=== PATIENT | male | born 1955 | race Caucasian/White ===

== ENCOUNTER → 2021-01-04 | Outpatient (CLI) | payer OTHER ==
--- NOTE | 2021-01-04 15:07 | CTL ---
EXAMINATION TYPE: CT Low Dose Lung DATE OF EXAM ORDERED: 01/04/2021 HISTORY: Long-term tobacco use. Lung cancer screening CT DLP: [address] CTDI: 3.7 mGy Automated exposure control for dose reduction was used. SCREENING VISIT: Initial study COMPARISON: None TECHNIQUE: Low dose computed tomography scan was performed through the chest at 1 mm thick sections a nd reconstructed images in the coronal plane at [address] DIAGNOSTIC QUALITY: Satisfactory FINDINGS: LUNG NODULES: None. LUNGS: COPD: Severity: Mild Fibrosis: Severity: Mild Lymph nodes: Mild Bibasilar Other findings: Enlarged main pulmonary artery of 3.5 cm axial image 114. [address] findings consistent with underlying pulmonary hypertension. Adjacent ascending aorta measures up to 3.6 cm in diameter. RIGHT PLEURAL SPACE: Effusion: None Calcification: None Thickening: None Pneumothorax: None LEFT PLEURAL SPACE: Effusion: None Calcification: None Thickening: None Pneumothorax: None HEART: Heart Size: Normal Coronary calcification: Mild To moderate Pericardial effusion: None OTHER FINDINGS: Upper abdomen: None Bony thorax: [id number] multilevel spurring in the mid to lower thoracic spine. Surgical change lower cervical spine noted on localizer. Supraclavicular region: None Other: Some right-sided volume loss with mediastinal shift. IMPRESSION: No suspicious nodules. Mild emphysematous change without acute pulmonary process. CT LUNG RAD AND CT CHEST RECOMMENDATION: Lung-Rad 1 Negative: Continue annual screening with LDCT in 12 months. S Modifier (other clinically significant findings): None
== END | disposition home or self-care (01) ==
LOC: RADCTMAIN 13:15
PROVIDERS: ATTEND Physician Assistant
DX: Z12.2 Encounter for screening for malignant neoplasm of respiratory organs (principal); J43.9 Emphysema, unspecified; F17.210 Nicotine dependence, cigarettes, uncomplicated
CPT/HCPCS: 71271

== ENCOUNTER → 2021-12-10 | Outpatient (CLI) | payer OTHER ==
--- NOTE | 2021-12-10 14:31 | US ---
EXAMINATION TYPE: US carotid duplex BILAT DATE OF EXAM: 12/10/2021 COMPARISON: NONE CLINICAL HISTORY: NAION. Patient lost vision in his right eye yesterday. EXAM MEASUREMENTS: RIGHT: Peak Systolic Velocity (PSV) cm/sec ----- Right CCA: 97.8 ----- Right ICA: 103. ----- Right ECA: 128.0 ICA/CCA ratio: 1.06 RIGHT: End Diastole cm/sec ----- Right CCA: 28.5 ----- Right ICA: 30.1 ----- Right ECA: 20.4 LEFT: Peak Systolic Velocity (PSV) cm/sec ----- Left CCA: 89.6 ----- Left ICA: 143 ----- Left ECA: 183 ICA/CCA ratio: 1.6 LEFT: End Diastole cm/sec ----- Left CCA: 15.1 ----- Left ICA: 49.2 ----- Left ECA: 35.4 VERTEBRALS (direction of flow): Right Vertebral: Antegrade Left Vertebral: Antegrade Rhythm: Normal Left side shows slight velocity increase. Moderate plaque. IMPRESSION: 1. Atheromatous plaquing present bilaterally with moderate narrowing between 50 and 69%. This appears greater on the left. Criteria for Assigning % of Stenosis / Diameter reduction (Estimation based on the indirect measurements of the internal carotid artery velocities (ICA PSV). 1. Normal (no stenosis)=ICA PSV < 125 cm/s: ratio < 2.0: ICA EDV<40 cm/s. 2. Less than 50% stenosis=ICA PSV < 125 cm/s: ratio < 2.0: ICA EDV<40 cm/s. 3. 50 to 69% stenosis=ICA PSV of 125 to 230 cm/s: ration 2.0 ? 4.0: ICA EDV 40-100 cm/s. 4. Greater than 70% stenosis to near occlusion= ICA PSV > 230 cm/s: ratio > 4.0: ICA EDV > 100 cm/s. 5. Near occlusion= ICA PSV velocities may be low or undetectable: variable ratio and ICA EDV. 6. Total occlusion=unable to detect flow.
== END | disposition home or self-care (01) ==
LOC: RADUSWWP 12:29
PROVIDERS: ATTEND Optometrist
DX: I65.23 Occlusion and stenosis of bilateral carotid arteries (principal)
CPT/HCPCS: 93880

== ENCOUNTER → 2021-12-28 | Outpatient (CLI) | payer OTHER ==
--- NOTE | 2021-12-29 09:43 | ECHOF ---
Referral Reason:H34.11 MEASUREMENTS -------- HEIGHT: 180.3 cm WEIGHT: 99.8 kg BP: IVSd: 1.1 cm (0.6 - 1.1) LVIDd: 2.7 cm (3.9 - 5.3) LVPWd: 1.0 cm (0.6 - 1.1) IVSs: 1.2 cm LVIDs: 1.8 cm LVPWs: 1.1 cm LAESV Index (A-L): 16.16 ml/m Ao Diam: 3.5 cm (2.0 - 3.7) AV Cusp: 1.8 cm (1.5 - 2.6) LA Diam: 4.0 cm (2.7 - 3.8) MV E Fred: 0.81 m/s MV DecT: 204 ms MV A Fred: 1.34 m/s MV E/A Ratio: 0.60 AV maxP.17 mmHg AV meanP.06 mmHg RAP: 5.00 mmHg RVSP: 16.89 mmHg FINDINGS -------- This was a technically adequate study. The left ventricular size is normal. Overall left ventricular systolic function is normal with, an EF between 55 - 60 %. Normal LAP Grade 1 Diastolic Dysfunction. The right ventricle is normal in size. The left atrial size is normal. The right atrial size is normal. Aortic valve is trileaflet and is mildly thickened. There is mild aortic valve sclerosis. Peak/me an gradient across the Aortic Valve is 10.17mmHg / 6.06mmHg. The mitral valve is normal. The mitral valve leaflets are mildly thickened. Mild mitral annular c alcification present. There is trace mitral regurgitation. The tricuspid valve appears structurally normal. Trace tricuspid regurgitation present. Right megan tricular systolic pressure is normal at < 35 mmHg. There is no pulmonic regurgitation present. The aortic root size is normal. Normal inferior vena cava with normal inspiratory collapse consistent with estimated right atrial pre ssure of 5 mmHg. There is no pericardial effusion. CONCLUSIONS -------- 1. The left ventricular size is normal. 2. Overall left ventricular systolic function is normal with, an EF between 55 - 60 %. 3. Normal LAP Grade 1 Diastolic Dysfunction. 4. Aortic valve is trileaflet and is mildly thickened. 5. There is mild aortic valve sclerosis. 6. Peak/mean gradient across the Aortic Valve is 10.17mmHg / 6.06mmHg. 7. The mitral valve leaflets are mildly thickened. 8. Mild mitral annular calcification present. 9. There is trace mitral regurgitation. 10. Trace tricuspid regurgitation present. 11. There is no pericardial effusion. TRACK WALKER: Danika Graham RDCS
== END | disposition home or self-care (01) ==
LOC: RADECHMAIN 11:10
PROVIDERS: ATTEND Ophthalmology
DX: I08.3 Combined rheumatic disorders of mitral, aortic and tricuspid valves (principal); H34.11 Central retinal artery occlusion, right eye
CPT/HCPCS: 83021; 85652; 93306

== ENCOUNTER → 2022-02-07 | Outpatient (CLI) | payer OTHER ==
--- NOTE | 2022-02-08 01:46 | MR ---
EXAMINATION TYPE: MR lumbar spine wo con DATE OF EXAM: 02/07/2022 COMPARISON: None HISTORY: Low back pain that radiates down right leg. Multiplanar multiecho imaging of the lumbar spine without contrast. Lumbar vertebrae have normal alignment. There is some mild posterior disc bulging at L4-5 and L1-2 an d L2-3. There is no significant spinal stenosis. The lumbar spinal canal is developmentally adequate. There is no compression fracture. No lumbar paraspinal mass. Disc bulging is also lateral on L4-5 o n the right side with neural foraminal impingement. The sacroiliac joints are intact. No compression fracture. No evidence of focal bone destruction. IMPRESSION: Multiple posterior disc bulges without significant spinal stenosis. There is a lateral disc herniation at L4-5 on the right side with neural foraminal impingement on th e lumbar nerve root and could be clinically significant in this patient with right-sided pain.
== END | disposition home or self-care (01) ==
LOC: RADMRIMAIN 19:19
PROVIDERS: ATTEND Orthopaedic Surgery
DX: M51.16 Intervertebral disc disorders with radiculopathy, lumbar region (principal)
CPT/HCPCS: 72148

== ENCOUNTER → 2022-02-09 | Outpatient (CLI) | payer OTHER ==
--- NOTE | 2022-02-09 22:16 | CTL ---
EXAMINATION TYPE: CT Low Dose Lung DATE OF EXAM ORDERED: 02/09/2022 HISTORY: Tobacco use. Lung cancer screening CT DLP: 95.[address] CTDI: 2.6 mGy Automated exposure control for dose reduction was used. SCREENING VISIT: Follow-up COMPARISON: CT dated 01/04/2021 TECHNIQUE: Low dose computed tomography scan was performed through the chest at 1 mm thick sections a nd reconstructed images in multiple planes at 1 mm and [address] DIAGNOSTIC QUALITY: Satisfactory FINDINGS: LUNG NODULES: Right upper lobe solid 2 mm mm nodule on CT image 106. This nodule is stable. LUNGS: COPD: Severity: Mild Fibrosis: Severity: None Lymph nodes: No pathologically enlarged lymph nodes. Other findings: Mild bronchial thickening. RIGHT PLEURAL SPACE: Effusion: None Calcification: None Thickening: None Pneumothorax: None LEFT PLEURAL SPACE: Effusion: None Calcification: None Thickening: None Pneumothorax: None HEART: Heart Size: Normal Coronary Calcification: Moderate to marked Pericardial Effusion: None OTHER FINDINGS: Upper abdomen: None Bony thorax: No aggressive bone lesion. Supraclavicular region: None Other: Scattered arterial atherosclerotic calcifications. The ascending aorta measures 3.9 cm. The pu lmonary trunk measures 3.4 cm suggestive of pulmonary hypertension. IMPRESSION: Stable 2 mm nodule in the right upper lobe. No other definite lung nodule identified. Inc idental findings as described above. CT LUNG RAD AND CT CHEST RECOMMENDATION: Lung-Rad 2 Benign Appearance or Behavior: Continue annual sc reening with LDCT in 12 months. S Modifier (other clinically significant findings): As above
== END | disposition home or self-care (01) ==
LOC: RADCTMAIN 16:28
DX: Z12.2 Encounter for screening for malignant neoplasm of respiratory organs (principal); R91.8 Other nonspecific abnormal finding of lung field; Z87.891 Personal history of nicotine dependence
CPT/HCPCS: 71271

== ENCOUNTER → 2022-02-11 | Outpatient (CLI) | payer OTHER ==
--- NOTE | 2022-02-11 15:48 | US ---
EXAMINATION TYPE: US carotid duplex BILAT DATE OF EXAM: 02/11/2022 COMPARISON: US December 10, 2021. CLINICAL HISTORY: I65.29, H54.61 UNQUALIFIED VISUAL LOSS, RIGHT EYE. Pt states vision loss in right e ye EXAM MEASUREMENTS: RIGHT: Peak Systolic Velocity (PSV) cm/sec ----- Right CCA: 86.9 ----- Right ICA: 90.8 ----- Right ECA: 93.0 ICA/CCA ratio: 1.0 RIGHT: End Diastole cm/sec ----- Right CCA: 33.7 ----- Right ICA: 40.2 ----- Right ECA: 22.6 LEFT: Peak Systolic Velocity (PSV) cm/sec ----- Left CCA: 83.1 ----- Left ICA: 153.0 ----- Left ECA: 249.8 ICA/CCA ratio: 1.8 LEFT: End Diastole cm/sec ----- Left CCA: 27.0 ----- Left ICA: 36.7 ----- Left ECA: 43.5 VERTEBRALS (direction of flow): Right Vertebral: Antegrade Left Vertebral: Antegrade Rhythm: Normal Heterogeneous plaque bilaterally, more on left side with elevated velocities left ICA and ECA IMPRESSION: Persistent asymmetric moderate to severe shadowing plaque left carotid bulb with elevate d peak systolic velocity . No significant change from recent prior study. Stenosis between 50-69% may be present. Advise CTA or MRA of the neck follow-up to further evaluate. Criteria for Assigning % of Stenosis / Diameter reduction (Estimation based on the indirect measurements of the internal carotid artery velocities (ICA PSV). 1. Normal (no stenosis)=ICA PSV < 125 cm/s: ratio < 2.0: ICA EDV<40 cm/s. 2. Less than 50% stenosis=ICA PSV < 125 cm/s: ratio < 2.0: ICA EDV<40 cm/s. 3. 50 to 69% stenosis=ICA PSV of 125 to 230 cm/s: ration 2.0 ? 4.0: ICA EDV 40-100 cm/s. 4. Greater than 70% stenosis to near occlusion= ICA PSV > 230 cm/s: ratio > 4.0: ICA EDV > 100 cm/s. 5. Near occlusion= ICA PSV velocities may be low or undetectable: variable ratio and ICA EDV. 6. Total occlusion=unable to detect flow.
== END | disposition home or self-care (01) ==
LOC: RADUSWWP 15:13
PROVIDERS: ATTEND Family Medicine
DX: I65.22 Occlusion and stenosis of left carotid artery (principal)
CPT/HCPCS: 93880

== ENCOUNTER → 2022-02-18 | Outpatient (CLI) | payer OTHER ==
--- NOTE | 2022-02-18 15:30 | US ---
EXAMINATION TYPE: US thyroid st tissue head/neck DATE OF EXAM: 02/18/2022 COMPARISON: NONE CLINICAL HISTORY: M79.89 Soft tissue disorder. Palpable area right posterior neck. Scanning was performed directly over palpable, as pointed out by patient, right posterior neck. There is a soft tissue density measuring 2.2 x 0.9 x 1.8 cm. There does not appear to be any vascularity a ssociated with this lesion. IMPRESSION: 1. Soft tissue nodule at the palpable abnormality posterior right neck. Consider CT soft tissue neck with contrast for additional evaluation.
== END | disposition home or self-care (01) ==
LOC: RADUSWWP 02-11 15:25
PROVIDERS: ATTEND Family Medicine
DX: E04.1 Nontoxic single thyroid nodule (principal)
CPT/HCPCS: 76536

== ENCOUNTER → 2022-03-04 | Outpatient (CLI) | payer OTHER ==
--- NOTE | 2022-03-04 10:54 | MR ---
MR angiogram of the neck with and without contrast HISTORY: I 65.29 Multiplanar multisequence, [id number] and postcontrast images obtained through the neck pre and p ostcontrast, patient received 9 cc Gadavist IV. Correlation to carotid Doppler duplex dated 02/11/2022 Motion, artifact is present on portions of the exam. The common carotid artery on the left shows atherosclerotic plaque correlating with the ultrasound fi ndings. Some plaque extends into the proximal external carotid, proximal internal carotid artery on t he left. There is an irregular appearance of the proximal internal carotid artery on the left. Approx imately 60% diameter reduction is suspected by NASCET criteria based on [id number] image #58 seri es 301. Her graft the innominate, left and right common carotid, left and right vertebral, left and r ight subclavian arteries are patent. Right internal carotid artery shows no significant stenosis. IMPRESSION: Hemodynamic significant stenosis of the proximal internal carotid artery the left is susp ected as described, there is artifact on the exam which may limit evaluation, CTA better for spatial resolution
== END | disposition home or self-care (01) ==
LOC: RADMRIMAIN 08:50
PROVIDERS: ATTEND Physician Assistant Medical
DX: I65.29 Occlusion and stenosis of unspecified carotid artery (principal)
CPT/HCPCS: 70549; A9585

== ENCOUNTER → 2022-03-16 | Outpatient (CLI) | payer OTHER ==
--- NOTE | 2022-03-16 11:42 | P.CON ---
Consult Note - . Consult date: 03/16/22 Assessment/Plan:: HISTORY OF PRESENT ILLNESS: 66 yr old male as a referral from Dr. Isaac presents today with chronic and severe lower back pain secondary to disc bulges and neuroforaminal stenoses for evaluation. He states his lower back pain is 6 out of 10 in intensity, constant, sharp, tingling sensation in the lower right aspects of his lumbar spine with occasional radiation down the right lower extremity. Pain also alternates to the left lower extremity rarely. Pain is provoked with standing and walking for periods of 20 minutes or more. Pain is relieved with medications (ibuprofen, aspirin), heat, physical therapy in October 2021 for 10 weeks, laying supine and rest. Past Medical History: Hyperlipidemia, Hypertension, Osteoarthritis (OA) Past Surgical History: Pelvic Surgery, L Shoulder Arthroscopy x 3, L Carpal Tunnel Release, L Hand Surgery, R Knee Arthroscopy x 2, RLE Skin Grafts Social History: Current every day smoker since 1969, No ETOH abuse, No illicit drug use Family History: Father- [place] All: NKDA Meds: See list REVIEW OF ORGAN SYSTEMS: CONSTITUTIONAL: No fevers or chills. No recent weight loss. HEENT: No visual acuity loss, eye pain, difficulties with hearing. No nosebleeds. No difficulty swallowing. RESPIRATORY: Denies any troubles with breathing or dyspnea on exertion. CARDIOVASCULAR: Denies any chest pain, palpitations, or recent heart attacks. GASTROINTESTINAL: Denies fatty food intolerance. Has change in bowel habits and gas bloat. GENITOURINARY: Denies any blood in urine. Has increased urinary frequency. NEUROLOGICAL: + numbness and tingling along the distal extremities. No seizure disorders or headaches. MUSCULOSKELETAL: + back pain SKIN: No skin cancer. No rash. PSYCHIATRIC: Denies current depression or suicidal thoughts. ENDOCRINE: Denies current thyroid disorders. Denies any blood sugar glucose intolerance. HEME/LYMPHATIC: Denies any lumps and bumps around the neck. History of deep venous thrombosis. ALLERGY/IMMUNOLOGY: No immunoglobulin therapy. No immune deficiencies. BREAST: Denies current breast lumps, pain or nipple discharge. Physical Examinations : Constitutional : Cooperative , not in acute distress . HEENT: Neck supple. No Lymphadenopathy. Normal thyroid size . Eyes no ptosis , no icterus, no photophobia . Hearing intact. Normal oropharynx. No Thrush. Respiratory : Chest clear to auscultations bilaterally. No wheezing. No rhonchi. Cardiovascular : Regular rate and rhythm , S1 / S2. No S3 . No S4. Gastrointestinal : Abdomen soft. No tenderness. Bowel sounds x 4. No organomegaly . Genitourinary : Deferred. Neurologic : Cranial nerve II to XII intact. No focal neurological deficits. Psychiatric : alert & oriented x 3. Matching mood & appropriate affect. Judgment & insight intact. Lymphatic No Lymphadenopathy. Musculoskeletal : Cervical Spine Motor strength in the deltoid and biceps: Normal right side. Normal Left side Motor strength biceps and the wrist extensors: Normal right side . Normal left side Motor strength in the triceps muscle: Normal right side. Normal left side Deep tendon reflexes: Normal at the biceps. Normal at Brachioradialis. Normal at triceps Cervical facet loading test: positive bilaterally Spurling test: positive bilaterally Neck distraction test: positive bilaterally Meghan sign: positive bilaterally Lumbar spine Motor strength lower extremities ,thigh and legs 5/5 Right side , 5/5 Left side Deep tendon reflexes : Normal Knee Jerk. Normal Ankle Jerk Vertebral body tenderness over L4, L5 Lumbar facet Loading Test: positive Right / positive Left Range of motion of the lumbar spine Flexion 30 degrees, extension 10 degrees Straight Leg Raise test: Left/ Right positive at <40 degrees Joi test: positive right / positive left. Severe tenderness over the Sacroiliac joint on the Right / Left sides Gaenslen test: positive bilaterally Seated flexion test: positive bilaterally. Imaging: MRI without contrast of the lumbar spine from 02/07/22 reviewed. Assessment/ Plan : Lumbar Radiculopathy, Lumbar Spondylosis Recommendation of R TFESI L4-L5. The need a series of injections, up to 3 within a six-month period, for optimal pain relief. Risks, benefits of procedure discussed and patient verbalized understanding. Denies anti- coagulant use or medical history of diabetes. All questions answered. I have spent greater than 50 minutes on patient care today. Dr Friedman was available by phone for the evaluation of this patient. The time was used to review the medical records including relevant urine studies and Prescription his tory (MAPs), review of the available imaging, evaluation and examination of the patient, coordination of care with the medical staff and if applicable referring physicians, as well as creation of the medical record PQRS Measure Charge Sheet PQRS Narrative: Smoking Status Current every day smoker Home Medications: Ambulatory Orders Fenofibrate,Micronized 134 mg PO HS 10/13/15 Gabapentin 400 mg PO TID 10/13/15 Multivitamin [Men's Multi-Vitamin] 1 tab PO DAILY 10/13/15 Simvastatin [Zocor] 40 mg PO HS 10/13/15 Aspirin 81 mg PO DAILY #30 chewable 11/17/15 Docusate [Colace] 100 mg PO BID #60 capsule 11/17/15 HYDROcodone/APAP 7.5-325MG [[place] 7.5-325] 1 tab PO Q6HR PRN #90 tab 11/17/15 Levofloxacin [Levaquin] 250 mg PO DAILY #5 tab 11/17/15 Warfarin [Coumadin] 2.5 mg PO DAILY #30 tab 11/17/15 hydrOXYzine pamoate [Vistaril] 25 mg PO TID PRN #60 capsule 11/17/15
[2022-03-16 11:52] VITALS: BP 145/80; PULSE 83; RESP 18; TEMP 98.7
== END ==
LOC: PNWHC3 10:50
PROVIDERS: ATTEND Specialist
DX: M47.26 Other spondylosis with radiculopathy, lumbar region (principal); E78.5 Hyperlipidemia, unspecified; I10 Essential (primary) hypertension; M19.90 Unspecified osteoarthritis, unspecified site; F17.200 Nicotine dependence, unspecified, uncomplicated
CPT/HCPCS: 99211

== ENCOUNTER 2022-05-10 07:13 | Day surgery (SDC) | payer OTHER ==
[2022-05-05 14:53] VITALS: BMI 31.5
[2022-05-10 07:36] VITALS: TEMP 96.8
[2022-05-10] MEDS: LACTATED RINGERS 1,000 ML IV SCH ×2 (07:41→07:53)
[2022-05-10] MEDS ORDERED: IOPAMIDOL M200 10 ML VIAL ONE (07:54)
[2022-05-10] MEDS ORDERED: fentaNYL (PF) 50 MCG/ML 2 ML AMP ONE (07:54)
[2022-05-10] MEDS ORDERED: LIDOCAINE 1% INJ 10MG/ML (20 ML MDV) ONE (07:54)
[2022-05-10] MEDS ORDERED: DEXAMETHASONE SOD PHOSPHATE 10 MG/ML 1 ML VIAL ONE (07:54)
[2022-05-10] MEDS ORDERED: MIDAZOLAM 2 MG/2 ML VIAL ONE (07:54)
--- NOTE | 2022-05-10 08:12 | P.PCN ---
Date of Procedure: 05/10/22 Surgeon: Madonna Dalton Pathology: none sent Condition: stable Disposition: PACU Description of Procedure: Preoperative Diagnosis: lumbar radiculopathy Postoperative Diagnosis: Same as above Procedure(s) Performed: Transforaminal epidural steroid injection for level L4- L5 on the right side under fluoroscopic guidance Anesthesia: MAC (IV moderate conscious sedation with fentanyl and Versed) Surgeon: Madonna Dalton Condition: stable Disposition: PACU Description of Procedure: . The patient was seen and identified in the preoperative area. Risks, benefits, complications, and alternatives were discussed with the patient. The patient agreed to proceed with the procedure and signed the consent. IV was started, and vital signs were stable. Patient was taken to the OR and time out was completed. The patient was placed in the prone position on procedure table and a pillow was placed under the abdomen to reduce lumbar lordosis. The lumbosacral area was prepped and draped in the usual sterile fashion. Critical pause was taken. Vital signs were closely monitored during the procedure. Conscious sedation was used during the procedure to decrease patients anxiety. Lidocaine 1% was used to numb the skin up at the target points that were chosen as follows: For the L4--L5 level the target point was at the 6 o'clock position of L-4 pedicle in the right oblique view. The correct view was obtained by squaring off the L4 vertebra on the AP view of fluoroscopy then the C-arm was tilted to the right oblique position to an angle at which the superior articular process of the lower vertebra would point to the middle of the pedicle above it at the 6 o'clock position as mentioned above . Then I used 3-1/2 inch 22-gauge Quincke spinal needle to get to the target point mentioned above by touching the inferior edge of the L4 pedicle and then walking off the bone and into the superior part of the L4-5 foramen using the lateral view of fluoroscopy. I then injected 1 mL of Isovue contrast dye which showed typical epidurogram around the L4 nerve root and into the epidural space. Then I injected 1 mL of lidocaine 1% +10 mg of Decadron.. Patient tolerated procedure well,and was transferred to PACU in stable condition. A copy of the needle placement picture was saved to the fluoroscopy machine. 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 The patient does not need to hold his antibiotics for these procedures
[2022-05-10] MEDS ORDERED: IV FLUID CONTINUATION 800 ML IV ONE (08:19)
[2022-05-10 08:20] VITALS: RESP 18
--- NOTE | 2022-05-10 08:21 | FL ---
Fluoroscopy HISTORY: Pain 6 seconds fluoroscopy time supplied to the referring clinician. 2 intraoperative C-arm images docume nt the procedure. See dictated report from anesthesia.
[2022-05-10 08:30] VITALS: BP 120/75; PULSE 84
== END 2022-05-10 08:46 | disposition home or self-care (01) ==
LOC: ORPAIN 07:13
PROVIDERS: ATTEND Anesthesiology
DX: M54.50 Low back pain, unspecified (principal); M62.81 Muscle weakness (generalized); I25.10 Atherosclerotic heart disease of native coronary artery without angina pectoris
CPT/HCPCS: 64483; J2250; J1100; J2001; J3010; Q9966; 99152

== ENCOUNTER → 2022-07-07 | Outpatient (CLI) | payer OTHER ==
[2022-07-07 10:53] VITALS: BP 134/86; PULSE 77; RESP 16
--- NOTE | 2022-07-07 11:19 | P.PN ---
Subjective Progress Note Date: 07/07/22 This is a 66-year-old gentleman with history of chronic neck and lower back pain on the right side only with numbness and tingling in the right leg. The patient's pain today and goes down to the right buttock area. He had 2 transforaminal epidural steroid injection on the lumbar spine and the L4 5 level on the right side and he got good relief after the first injection however he did not get any relief from the second one as she states. The patient is a heavy smoker with 2 packs of cigarettes a day. Patient denies new-onset weakness, bowel/bladder incontinence, or any other signs or symptoms of cauda equina syndrome. There are no signs of acute intoxication, and no indications of medication diversion or overuse. In addition to above, 13-point review of systems is also negative for chest pain, shortness of breath, changes in vision, changes in hearing, new onset weakness, abdominal pain, diarrhea, extreme fatigue, malaise, fever, skin changes, homicidal or suicidal ideation, or bowel or bladder incontinence. Vital Signs: Reviewed in EMR Gen: AAOx3, NAD HEENT: PERRLA,hearing grossly normal Pulm: resp unlabored Neck: supple, trachea midline Neuro exam of the lower extremities: Normal muscle strength bilaterally. Absent right knee reflex due to previous knee replacement surgery and normal left knee reflex, absent ankle reflexes bilaterally Straight leg raising test: Negative bilaterally Chapincito's test: Negative on the right side Range of motion of the lumbar spine: Facet loading test: Positive on the lumbar area on the right side Tenderness in the paravertebral musculature: Positive on the right side Neuro: CN II-XII grossly intact, Imaging: Reviewed in EMR/chart Assessment: Lumbar spondylosis without myelopathy Right lumbar radiculopathy Plan: 1. Explanation: When patients on opioids, opioid and psychological risk scores were reviewed. Diagnoses, prognoses, and multiple treatment options including but not limited to physical therapy, interventional therapies, adjuvant medical therapies, narcotic medication therapies, and surgery were discussed with the patient and all questions were answered to the patient's satisfaction. 2. Opioid agreement:When patients are prescribed opoids through our clinic, opioid agreement is signed with the patient and the patient is warned not to use opioids while driving or before driving and not to combine opioids with benzodiazepines or alcohol. 3. Counseling: When patient is smoking or obese, the patient was counseled extensively on SMOKING CESSATION, BODY MASS INDEX, EXERCISE. Specifically, the patient was instructed regarding the importance of smoking cessation, obesity, and exercise in the context of both chronic pain and overall health. 4. Procedures: We'll schedule her for diagnostic lumbar medial branch block on the right side the fluoroscopic guidance for levels L4 5 and L5-S1 5. Consultations: None 6. Investigations: None 7. Medications: None prescribed 8. Disposition: Proceed with the above-mentioned procedure as soon as possible Objective - Vital Signs Vital signs: Vital Signs Temp Pulse 77 07/07/22 10:49 Resp 16 07/07/22 10:49 BP 134/86 07/07/22 10:49 Pulse Ox 96 07/07/22 10:49 FiO2 Intake & Output 07/06/22 07/07/22 07/07/22 18:59 06:59 18:59 Weight 97.976 kg
== END ==
LOC: PNWHC3 10:32
PROVIDERS: ATTEND Anesthesiology
DX: M47.26 Other spondylosis with radiculopathy, lumbar region (principal); M25.551 Pain in right hip; F17.210 Nicotine dependence, cigarettes, uncomplicated
CPT/HCPCS: 99211

== ENCOUNTER → 2022-07-07 | Outpatient (CLI) | payer OTHER ==
--- NOTE | 2022-07-07 12:19 | XR ---
Right hip HISTORY: M 25.551 2 views of the right hip, no comparisons available There is joint space loss present. Alignment and bone mineralization are within normal limits. No fra cture or dislocation. There are probable vascular calcifications, possible prostate calcifications no glenn incidentally within the pelvis. IMPRESSION: Possible underlying osteoarthritis.
== END | disposition home or self-care (01) ==
LOC: RADXRMAIN 11:25
PROVIDERS: ATTEND Anesthesiology
DX: M25.551 Pain in right hip (principal)
CPT/HCPCS: 73502

== ENCOUNTER → 2022-10-31 | Outpatient (CLI) | payer OTHER | END | disposition home or self-care (01) | LOC: LABPAT 09:59 | PROVIDERS: ATTEND Orthopaedic Surgery | DX: Z01.812 Encounter for preprocedural laboratory examination (principal); Z22.322 Carrier or suspected carrier of Methicillin resistant Staphylococcus aureus; M48.061 Spinal stenosis, lumbar region without neurogenic claudication | CPT/HCPCS: 87070 ==

== ENCOUNTER 2022-11-08 06:23 | Day surgery (SDC) | payer OTHER ==
--- NOTE | 2022-11-07 16:30 | P.HPOR ---
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 culture/infection: 2011 MDRO Source:: PELVIC-ON DAILY ANTIBIOTICS FOR PAST 12-13 YEARS Past Surgical History: Joint Replacement, Orthopedic Surgery Additional Past Surgical History / Comment(s): PAIN CLINIC INJECTIONS, PELVIC SURGERY, RIGHT KNEE, LEFT SHOULDER, LEFT HAND , NECK SURGERY fused, DEBRIDEMENT RIGHT GROIN, LEFT ROTATOR CUFF, TOTAL RIGHT KNEE Past Anesthesia/Blood Transfusion Reactions: No Reported Reaction Smoking Status: Current every day smoker - Past Family History Father Family Medical History: COPD Additional Family Medical History / Comment(s): lost a lung Mother Additional Family Medical History / Comment(s): heart failure Medications and Allergies Home Medications Medication Instructions Recorded Confirmed Type Gabapentin 400 mg PO TID 10/13/15 11/04/22 History Multivitamin [Men's Multi-Vitamin] 1 tab PO DAILY 10/13/15 11/04/22 History Simvastatin [Zocor] 80 mg PO HS 10/13/15 11/04/22 History Aspirin 81 mg PO DAILY #30 chewable 11/17/15 11/04/22 Rx HYDROcodone/APAP 5-325MG [[place] 1 tab PO Q4HR PRN 3 Days #18 tab 04/20/22 11/04/22 Rx 5-325] Ibuprofen 800 mg PO Q8H PRN 04/20/22 11/04/22 History Sulfamethoxazole/Trimethoprim 1 each PO BID 04/20/22 11/04/22 History [Bactrim SS 400-80 mg] lisinopriL [Zestril] 20 mg PO DAILY 04/20/22 11/04/22 History Latanoprost [Latanoprost 0.005%] 1 applic RIGHT EYE HS 11/04/22 11/04/22 History Allergies Allergy/AdvReac Type Severity Reaction Status Date / Time No Known Allergies Allergy Verified 11/04/22 10:49 Physical Examination Osteopathic Statement: *. No significant issues noted on an osteopathic structural exam other than those noted in the History and Physical/Consult.
[~2022-11-08 06:23] MED LIST: ACETAMINOPHEN TAB 500 MG TAB PO PRN; DEXAMETHASONE SOD PHOSPHATE 4 MG/ML 1 ML VIAL IV ONE; GABAPENTIN 300 MG CAP PO PRN; LIDOCAINE 1% (10MG/ML) FOR IV START INTRADERMA PRN; MIDAZOLAM 2 MG/2 ML VIAL IV PRN; ONDANSETRON 4 MG/2 ML VIAL IVP ONE; ONDANSETRON 4 MG/2 ML VIAL IVP PRN; TRANEXAMIC ACID IN NACL,ISO-OS 1,000 MG in SALINE 1 100ML.BAG IVPB PRN
[2022-11-08] MEDS: LACTATED RINGERS 1,000 ML IV SCH ×2 (06:55→07:00)
[2022-11-08] MEDS ORDERED: HYDROmorphone 0.5 MG/0.5 ML SYRINGE IVP PRN (07:00)
[2022-11-08 07:19] VITALS: TEMP 97.1
[2022-11-08] MEDS ORDERED: ROCURONIUM 10 MG/ML (5 ML VIAL) IV ONE (07:25)
[2022-11-08] MEDS ORDERED: PHENYLEPHRINE-0.9% NACL SYG 1,000 MCG/10 ML SYRINGE ONE (07:25)
[2022-11-08] MEDS ORDERED: TRANEXAMIC ACID IN NACL,ISO-OS 1,000 MG/100 ML BAG ONE (07:25)
[2022-11-08] MEDS ORDERED: GLYCOPYRROLATE 0.2 MG/ML 2 ML VIAL ONE (07:25)
[2022-11-08] MEDS ORDERED: PROPOFOL 10 MG/ML 20 ML VIAL IV ONE (07:25)
[2022-11-08] MEDS ORDERED: SUCCINYLCHOLINE CHLORIDE 200 MG/10 ML VIAL IV ONE (07:25)
[2022-11-08] MEDS ORDERED: fentaNYL (PF) 50 MCG/ML 2 ML AMP ONE (07:25)
[2022-11-08] MEDS ORDERED: LIDOCAINE 2% INJ 20 MG/ML (2 ML VIAL) ONE (07:25)
[2022-11-08] MEDS ORDERED: WATER FOR INJECTION, STERILE 10 ML VIAL IV ONE (07:25)
[2022-11-08] MEDS ORDERED: ePHEDrine 50 MG/ML 1 ML VIAL ONE (07:25)
[2022-11-08] MEDS ORDERED: MIDAZOLAM 2 MG/2 ML VIAL ONE (07:25)
[2022-11-08] MEDS ORDERED: NEOSTIGMINE 1 MG/ML 10 ML VIAL ONE (07:25)
[2022-11-08] MEDS ORDERED: THROMBIN (BOVINE) 5,000 UNIT VIAL TOPICAL ONE (07:29)
[2022-11-08] MEDS ORDERED: BUPIVACAIN-EPI 0.25%-1:200,000 30 ML VIAL SQ ONE (07:29)
[2022-11-08] MEDS ORDERED: GELATIN SPONGE,ABSORB (LARGE) 1 EACH SPONGE TOPICAL ONE (07:29)
[2022-11-08] MEDS ORDERED: GENTAMICIN 80 MG in SODIUM CHLORIDE 0.9% IRRIGATIO 3,000 ML IRRIGATION ONE (08:05)
[2022-11-08] MEDS ORDERED: ceFAZolin 3,000 MG in SODIUM CHLORIDE 0.9% IRRIGATIO 3,000 ML IRRIGATION ONE (08:05)
[2022-11-08] MEDS ORDERED: LACTATED RINGERS 1,000 ML IV ONE ×2 (08:15→09:46)
[2022-11-08] MEDS ORDERED: VANCOMYCIN 1,000 MG VIAL MISCELLANE ONE (09:15)
--- NOTE | 2022-11-08 09:35 | XR ---
EXAM TYPE: LUMBAR SPINE X RAY SERIES COMPARISON: NONE HISTORY: Lumbar decompression TECHNIQUE: 8 views are submitted. FINDINGS: Limited resolution intraoperative images are submitted demonstrating postsurgical changes IMPRESSION: 1. Lumbar decompression
--- NOTE | 2022-11-08 09:36 | FL ---
EXAMINATION TYPE: FL guidance operating room DATE OF EXAM: 11/08/2022 HISTORY: Fluoroscopy time 8 seconds of fluoroscopy provided. IMPRESSION: 1. Fluoroscopy time.
[2022-11-08] MEDS ORDERED: HYDROmorphone 0.5 MG/0.5 ML SYRINGE IVP ONE ×2 (10:04→10:11)
[2022-11-08] MEDS ORDERED: KETOROLAC 15 MG/ML 1 ML VIAL IVP ONE (10:26)
[2022-11-08] MEDS ORDERED: HYDROcodone/APAP 10-325MG 1 EACH TAB ONE (11:05)
[2022-11-08] MEDS ORDERED: HYDROcodone/APAP 10-325MG 1 EACH TAB PO ONE (11:06)
[2022-11-08 12:23] VITALS: RESP 20
[2022-11-08] MEDS ORDERED: TAMSULOSIN 0.4 MG CAP.ER.24H PO ONE (14:03)
[2022-11-08] MEDS ORDERED: ONDANSETRON 4 MG/2 ML VIAL IVP ONE (14:04)
[2022-11-08] MEDS ORDERED: GABAPENTIN 300 MG CAP PO ONE (14:44)
[2022-11-08 14:58] VITALS: BP 109/67; PULSE 75
--- NOTE | 2022-11-10 09:32 | P.OP ---
Date of Procedure: 11/08/22 Preoperative Diagnosis: 1. L4-5 foraminal and central stenosis 2. L4-5 spondylosis 3. LE radiculopathy 4. LE weakness Postoperative Diagnosis: 1. L4-5 foraminal and central stenosis 2. L4-5 spondylosis 3. LE radiculopathy 4. LE weakness Procedure(s) Performed: 1. L4-5 bilateral laminectomy, partial medial facetectomy and foraminotomy (23935/50) 2. Coflex placement Use of microscope Implants: Coflex 10 mm Anesthesia: GETA Surgeon: Yaniv Isaac Oil Heat Technician #1: Tavon Martines (Was present and assisted in all aspects of the case from positioning to dressing placement. ) Estimated Blood Loss (ml): 50 IV fluids (ml): 1,200 Urine output (ml): 0 Pathology: none sent Condition: stable Disposition: PACU Indications for Procedure: Mr. Anthony is presenting for evaluation of low back pain. It was my pleasure to have seen and examined Mr. Anthony. In our visit today we have had a chance to go over subjective complaints, ph ysical examination findings and treatments including the natural course history without intervention and various interventional options. The patients imaging demonstrates: XRay Lumbar Multiview (AP, Lateral, Flexion, Extension) with AP pelvis; 5 views taken on 01/06/22 of Lumbar, Pelvis Spine: This is reviewed and demonstrates spondylosis throughout the lumbar spine with disc height loss, osteophytes and sclerosis noted. This is worst at L4-S1. There are no fractures noted. There is facet arthropathy noted. There is foraminal stenosis related. No lesions noted. Alignment is stable w/o instability however LL is decreased through. Coronal balance maintained. AP pelvis shows level pelvis no fractures. No complicating processes. MRI without contrast of Lumbar spine 02/07/22 completed at [facility] demonstrates: This his review the office with the patient demonstrates spondylotic changes from L3 through S1. These are most severe at L4-L5. There is bilateral foraminal stenosis at L4-L5 which is noted and seems to be worse on the right- hand side on the left-hand side which correlates with patient's symptoms. There is really no severe central stenosis. There is moderate left foraminal stenosis at L3-L4 disc bulging as well. Fremitus stenosis at L4-L5 is related to facet hypertrophy lateral recess stenosis and disc herniation and bulging. No acute fracture or dislocations noted at this time. On physical exam, Mr. Anthony demonstrates restricted lumbar ROM due to pain that is impacting his ability to complete functional testing. Furthermore the patient does also demonstrate continued weakness more in RLE along with L4-L5 dermatomal deficits about the right lower extremity. DF/PF are still weak however similar to before. I have explained to the patient that as their condition progresses it will cause further neurological deficits and eventual paralysis. Based on the patients imaging, physical exam, and the rapid progression and disabling nature of their symptoms, at this time I recommend surgery in the form or a: lumbar (L4-L5) Coflex Placement . I discussed the risk and benefits of this procedure at length with Mr. Anthony. The patient agreed to considered pursuing the procedure abovementioned. Prior to surgery, she should follow up with her PCP (Cardio, ID, IM etc) for clearance. Questions were invited and answered, and the patient wishes to proceed as outlined below. Currently, I am recommendin.lumbar (L4-L5) Coflex Placement Description of Procedure: The patient was seen and examined in the preoperative area. All preoperative protocols were followed. Informed consent was obtained, risks and benefits of the procedure were discussed at length. Risks including bleeding infection damage to the surrounding tissue and risk of re-operation were discussed with the patient. Risk of anesthesia up to and including was discussed with the patient. These are outlined in the risk review. They were willing to accept these risks and all the risks of surgery. The patient was given a weight-based dose of antibiotics in the form of 2 g Ancef. The patient was seen and evaluated by the anesthesia team who deemed them fit for surgery. The site was marked, the patient was willing to proceed with the procedure. The patient was transferred to the operative suite by the Department of anesthesia. They were then drifted off to sleep by the department anesthesia and GETA was performed. The patient tolerated this well. Valentin catheter was placed by nursing staff, a-traumatically. Once confirmation of lines and vent ilation the patient was transferred to a prone Rivera table very carefully. All bony prominences including wrists, elbows, axilla, chest, hips, and thighs, and feet were padded very well. Special attention was paid to the genitalia, and these were padded accordingly. SCDs were placed on bilateral lower extremities and were connected. Arms were well padded and placed on arm boards up and out in the 90/90 position. Once in position, again we confirmed good ventilation capabilities and that lines were running appropriately. The patients Lumbar spine was then exposed. 1010s were placed outlining the incision site. Standard alcohol was used to clean the incision site and allowed to dry. C-arm was used to needle localize the pedicles at L4-5 and bio-taisha the patient and confirm level for incision which was marked with a skin marker. Operative briefing was performed with all teams and everyone in agreement to proceed. The patient was then prepped and draped in a normal sterile fashion. Timeout was then performed, and all parties agreed with the procedure to be performed. Skin incision was made over the previously marked area and dissection taken down to the deep facia which was split just off midline for a midline sparing approach. Subperiosteal dissection was then taken down the lamina over the facet joints and identifying the pars at L4. [place]ie 4 was placed at the level of the pars of L4 and a lateral image taken to confirm operative level. Retractors were then placed. Microscope was then brought in for visualization. Francesco-laminotomy, partial medial facetectomy and foraminotomy were performed at L4-5 bilaterally using high speed alejandra and Kerrison rongure. The ligamentum flavum was removed with Kerrison and curette. Dura and roots protected. Once decompression was accomplished the supraspinous and interspinous ligaments were removed at L4-5 and the SPs cleaned. Trial was then done under lateral imaging of Coflex sizes and a 10 mm was selected. This was then gently impacted into position under lateral imaging. It was in good position and the wings were crimpted to the SP. The implant was tested and was stable. There was good decompression noted. The bed was inspected, and all roots have ample room and are decompressed along with the dura. There were no injuries. Retractors were then removed. The wound was copiously irrigated with NSS. 2g Vancomycin powder placed in the wound. The deep fascia was closed with #1 PDS. Deep sub-q with 0 Vicryl and superficial with 2-0 Vicryl. Subcuticular was closed with 3-0 stratafix. The wound edges approximated well. The wound was then cleaned, and glue tape placed on the skin and allowed to dry. It was then Covered with an Opifoam dressing. The patient was then transferred off the table back to their hospital bed a- traumatically. They were extubated by the department of anesthesia. They were then transferred to PACU in stable condition having tolerated the procedure with no complications.
== END 2022-11-08 16:23 | disposition home or self-care (01) ==
LOC: OR 06:23
PROVIDERS: ATTEND Orthopaedic Surgery
DX: M48.061 Spinal stenosis, lumbar region without neurogenic claudication (principal); G47.9 Sleep disorder, unspecified; M47.26 Other spondylosis with radiculopathy, lumbar region; G83.11 Monoplegia of lower limb affecting right dominant side; Z86.73 Personal history of transient ischemic attack (TIA), and cerebral infarction without residual deficits
CPT/HCPCS: 86900; 86901; 86850; 72100; 36415; 63047; C1713; C1762; J2250; J3370; J0330; J1580; J2710; J0690 ×2; J2405; J3010; J1885; J2370; J2704; J1170; J1790; J2001

== ENCOUNTER → 2023-02-09 | Outpatient (CLI) | payer OTHER ==
--- NOTE | 2023-02-09 09:15 | CTL ---
EXAMINATION TYPE: CT Low Dose Lung DATE OF EXAM ORDERED: 02/09/2023 COMPARISON: 02/09/2022 HISTORY: . Low Dose CT Lung Screening CT DLP: 119.[address] CTDI: 3.40 mGy IV CONTRAST USED: None. SCREENING VISIT: First visit COMPARISON: None. TECHNIQUE: Low dose computed tomography scan was performed through the chest at 1 millimeter thick se ctions and reconstructed images in the coronal plane at [address] DIAGNOSTIC QUALITY: Satisfactory FINDINGS: LUNG NODULES: Stable 2 mm solid nodule right upper lobe at its periphery image 92. No additional nodu les are present. LUNGS: COPD: Severity: Mild Fibrosis: Severity:None Lymph nodes: None Other findings: None RIGHT PLEURAL SPACE: Effusion: None Calcification: None Thickening: None Pneumothorax: None LEFT PLEURAL SPACE: Effusion: None Calcification: None Thickening: None Pneumothorax: None HEART: Heart Size: Mildly enlarged Coronary calcification: Mild Pericardial effusion: None OTHER FINDINGS: Upper abdomen: No significant abnormality Bony thorax: Degenerative changes Supraclavicular region: No significant abnormalityOther: No significant abnormalityI IMPRESSION: Stable small longitudinal or nodule. No new nodules evident. FOLLOW UP CT CHEST RECOMMENDATION: Follow-up screening in one year CT LUNG RAD: LUNG RAD CATEGORY 2 benign appearance or behavior
== END | disposition home or self-care (01) ==
LOC: RADCTMAIN 08:18
PROVIDERS: ATTEND Family Medicine
DX: Z12.2 Encounter for screening for malignant neoplasm of respiratory organs (principal); F17.210 Nicotine dependence, cigarettes, uncomplicated
CPT/HCPCS: 71271

== ENCOUNTER → 2023-06-22 | Outpatient (CLI) | payer OTHER ==
[2023-06-22 11:38] VITALS: BP 169/102; PULSE 88; RESP 15; TEMP 97.9
--- NOTE | 2023-06-22 13:10 | P.PAINPG ---
PQRS Measure Charge Sheet Comment: HISTORY OF PRESENT ILLNESS: 67 yr old male presents today with chronic and severe lower back pain secondary to post laminectomy syndrome for evaluation. Pt states he had an DEXTER in Jun 2022 where he experienced 0 % pain relief s/p procedure. He states the facet blocks of the medial branches were also ineffective and he could not go forward with the RFA. In Oct 2022 he states he had a lumbar spacer placed which chipped a vertebrae and he underwent a second lumbar surgery in Nov 2022. He states his lower back pain is 6/10 in intensity, constant, sharp, tingling sensation in the lower right aspects of his lumbar spine with occasional radiation down the RLE. Pain also alternates to the left lower extremity rarely. Pain is provoked with standing and walking for periods of 20 minutes or more. Pain is relieved with medications, heat, PT x 6 wks which was completed in May 2023, use of a lumbar support brace, laying supine, repositioning and rest. Oswestry axial pain score of 26. Interventional procedures include DEXTER L4-L5, R TFESI L4-L5 Medications include Ibu, ASA REVIEW OF ORGAN SYSTEMS: CONSTITUTIONAL: No fevers or chills. No recent weight loss. HEENT: No visual acuity loss, eye pain, difficulties with hearing. No nosebleeds. No difficulty swallowing. RESPIRATORY: Denies any troubles with breathing or dyspnea on exertion. CARDIOVASCULAR: Denies any chest pain, palpitations, or recent heart attacks. GASTROINTESTINAL: Denies fatty food intolerance. Has change in bowel habits and gas bloat. GENITOURINARY: Denies any blood in urine. Has increased urinary frequency. NEUROLOGICAL: + numbness and tingling along the distal extremities. No seizure disorders or headaches. MUSCULOSKELETAL: + back pain SKIN: No skin cancer. No rash. PSYCHIATRIC: Denies current depression or suicidal thoughts. ENDOCRINE: Denies current thyroid disorders. Denies any blood sugar glucose intolerance. HEME/LYMPHATIC: Denies any lumps and bumps around the neck. History of deep venous thrombosis. ALLERGY/IMMUNOLOGY: No immunoglobulin therapy. No immune deficiencies. BREAST: Denies current breast lumps, pain or nipple discharge. Physical Examinations : Constitutional : Cooperative , not in acute distress . HEENT: Neck supple. No Lymphadenopathy. Normal thyroid size . Eyes no ptosis , no icterus, no phot ophobia . Hearing intact. Normal oropharynx. No Thrush. Respiratory : Chest clear to auscultations bilaterally. No wheezing. No rhonchi. Cardiovascular : Regular rate and rhythm , S1 / S2. No S3 . No S4. Gastrointestinal : Abdomen soft. No tenderness. Bowel sounds x 4. No organomegaly . Genitourinary : Deferred. Neurologic : Cranial nerve II to XII intact. No focal neurological deficits. Psychiatric : alert & oriented x 3. Matching mood & appropriate affect. Judgment & insight intact. Lymphatic No Lymphadenopathy. Musculoskeletal : Cervical Spine Motor strength in the deltoid and biceps: Normal right side. Normal Left side Motor strength biceps and the wrist extensors: Normal right side . Normal left side Motor strength in the triceps muscle: Normal right side. Normal left side Deep tendon reflexes: Normal at the biceps. Normal at Brachioradialis. Normal at triceps Cervical facet loading test: positive bilaterally Spurling test: positive bilaterally Neck distraction test: positive bilaterally Meghan sign: positive bilaterally Lumbar spine Motor strength lower extremities ,thigh and legs 5/5 Right side , 5/5 Left side Deep tendon reflexes : Normal Knee Jerk. Normal Ankle Jerk Vertebral body tenderness over L4, L5 Lumbar facet Loading Test: positive Right / positive Left Range of motion of the lumbar spine Flexion 30 degrees, extension 10 degrees Straight Leg Raise test: Left/ Right positive at <40 degrees Joi test: positive right / positive left. Severe tenderness over the Sacroiliac joint on the Right / Left sides Gaenslen test: positive bilaterally Seated flexion test: positive bilaterally. Imaging: CT without contrast of the lumbar spine from 12/02/22 reviewed. Assessment/ Plan : Post laminectomy syndrome Recommendation of Behavioral health eval for SCS Trial Dx G89.4, M54.16. Video viewed. Not interested in medication management due to worries of dependency and tolerance. All questions answered. I have spent greater than 50 minutes on patient care today. Dr Friedman was available by phone for the evaluation of this patient. The time was used to review the medical records including relevant urine studies and Prescription history (MAPs), review of the available imaging, evaluation and examination of the patient, coordination of care with the medical staff and if applicable referring physicians, as well as creation of the medical record PQRS Narrative: Smoking Status Current every day smoker Hx Alcohol Use (MH) No Home Medications: Ambulatory Orders Gabapentin 800 mg PO TID 10/13/15 Multivitamin [Men's Multi-Vitamin] 1 tab PO DAILY 10/13/15 Simvastatin [Zocor] 80 mg PO HS 10/13/15 Aspirin 81 mg PO DAILY #30 chewable 11/17/15 Ibuprofen 800 mg PO Q8H PRN 04/20/22 Sulfamethoxazole/Trimethoprim [Bactrim SS 400-80 mg] 1 each PO BID 04/20/22 lisinopriL [Zestril] 20 mg PO QAM 04/20/22 Latanoprost [Latanoprost 0.005%] 1 applic RIGHT EYE HS 11/04/22 Cyclobenzaprine [Flexeril] 10 mg PO HS PRN #40 tab 11/08/22 Sennosides/Docusate Sodium [Senna Plus 8.6-50 mg Softgel] 1 each PO BID PRN #20 capsule 11/08/22 cefaDROXiL [Duricef] 500 mg PO Q12HR 3 Days #6 cap 11/08/22 HYDROcodone/APAP 10-325MG [[place] 10-325] 1 tab PO Q4HR PRN 7 Days #42 tab 12/06/22 cefaDROXiL [Duricef] 500 mg PO Q12HR 10 Days #20 cap 12/06/22 Controlled Substance Measures - Controlled Substance Measures Is patient prescribed a controlled substance at discharge?: No
== END ==
LOC: PNWHC3 08:44
PROVIDERS: ATTEND Specialist
DX: G89.4 Chronic pain syndrome (principal); M54.16 Radiculopathy, lumbar region; M96.1 Postlaminectomy syndrome, not elsewhere classified; F17.200 Nicotine dependence, unspecified, uncomplicated; Z79.82 Long term (current) use of aspirin
CPT/HCPCS: 99211

== ENCOUNTER → 2023-10-06 | Outpatient (CLI) | payer MEDICARE ==
--- NOTE | 2023-10-06 12:01 | US ---
EXAMINATION TYPE: US arterial LE single level DATE OF EXAM: 10/06/2023 10:23 AM CLINICAL INDICATION: Male, 67 years old with history of I73.9 PERIPHERAL VASCULAR DISEASE, UNSPECIFIE D; Tingling right leg for 2 years, getting worse. cold feet History of: Smoker: current Hypertension: yes Diabetic: no Hyperlipidemia: unknown TIA/CVA: no Previous Vascular Surgery: no GA: no Vascular Ulcers: no Claudication: no Gangrene: no Doppler Waveforms: Right: Multiphasic Left: Multiphasic Right Brachial Pressure: 125 Left Brachial Pressure: 122 Ankle-Brachial Indices: Right: 1.11 Left: 1.01 Toe Brachial Indices: Right: 0.34 Left: 0.38 IMPRESSION: Normal ankle-brachial indices bilaterally.
== END | disposition home or self-care (01) ==
LOC: RADUSWWP 09:46
PROVIDERS: ATTEND Internal Medicine
DX: I73.9 Peripheral vascular disease, unspecified (principal); I10 Essential (primary) hypertension
CPT/HCPCS: 93922

== ENCOUNTER → 2023-12-20 | Outpatient (CLI) | payer OTHER ==
--- NOTE | 2023-12-20 21:26 | US ---
EXAMINATION TYPE: US Aorta Screening DATE OF EXAM: 12/20/2023 COMPARISON: NONE CLINICAL INDICATION: Male, 68 years old with history of Z72.0 TOBACCO; Patient hx of tobacco use. NO symptoms or prior examination of Aorta. TECHNIQUE: Multiple sonographic images of the abdominal aorta are obtained. FINDINGS: EXAM MEASUREMENTS: Abdominal Aorta: Proximal: 2.6 x 2.9cm Mid: 2.3x 2.5 cm Distal: 2.3 x 1.5 cm Bifurcation: Right Iliac: 1.1 x 1.1cm Left Iliac: 1.0 x 1.2 cm [employer] NOTES: No AAA seen today. Mild plaque seen within mid/distal Aorta and iliacs. *Limited by overlying bowel gas and patient body habitus IMPRESSION: Ectatic upper abdominal aorta measuring up to 2.9 cm. Otherwise, no evidence for AAA.
== END | disposition home or self-care (01) ==
LOC: RADUSWWP 08:56
PROVIDERS: ATTEND Family Medicine
DX: Z13.6 Encounter for screening for cardiovascular disorders (principal); I77.811 Abdominal aortic ectasia; Z72.0 Tobacco use
CPT/HCPCS: 76706

== ENCOUNTER → 2024-02-12 | Outpatient (CLI) | payer OTHER ==
--- NOTE | 2024-02-14 22:20 | CTL ---
EXAMINATION TYPE: CT Low Dose Lung DATE OF EXAM ORDERED: 02/12/2024 HISTORY: 68-year-old male with Z12.2, current smoker with 64 pack-year history.. Lung cancer screenin g CT DLP: 129.[address] CTDI: 3.6 mGy Automated exposure control for dose reduction was used. SCREENING VISIT: Annual follow-up COMPARISON: 02/09/2023 TECHNIQUE: Low dose computed tomography scan was performed through the chest with coronal and sagitta l reconstructions. CT DIAGNOSTIC QUALITY: Satisfactory FINDINGS: The heart is normal size without pericardial effusion. Mild aortic valvular calcifications are presen t. Moderate LAD and RCA coronary artery calcifications. Ectatic ascending aorta 3.8 cm. Conventional arch vessel branching anatomy. Minimal atherosclerotic a rch calcifications. No thoracic lymphadenopathy by CT size criteria. Strandy scarring or atelectasis posterior right lung base as well as the medial right middle lobe. Mi ld diffuse bronchial wall thickening. Mild emphysematous change is present. No consolidation or pleur al effusion. Small 8 mm groundglass focus medial right upper lobe, axial image 44. Tiny 3 mm subpleural pulmonary nodule periphery of the right upper lobe, axial image 99. No consolidation or pleural effusion. Visualized upper abdomen shows no gross abnormality. Bones: Partially visualized ACF hardware. Accentuated mid to lower thoracic kyphosis with mild anteri or endplate spondylosis lower thoracic spine. IMPRESSION: 1. LungRADS 2, benign. A single 8 mm groundglass nodule medial right upper lobe on baseline screening . 2. COPD with mild emphysema. Some strandy basilar scarring or atelectasis. Recommend smoking cessatio n. 3. LAD and RCA coronary artery calcifications. CT LUNG RAD AND CT CHEST RECOMMENDATION: Lung-Rad 2 Benign Appearance or Behavior: Continue annual sc reening with LDCT in 12 months. S Modifier (other clinically significant findings): None
== END | disposition home or self-care (01) ==
LOC: RADCTMAIN 12:38
PROVIDERS: ATTEND Internal Medicine
DX: Z12.2 Encounter for screening for malignant neoplasm of respiratory organs (principal); J44.9 Chronic obstructive pulmonary disease, unspecified; I25.10 Atherosclerotic heart disease of native coronary artery without angina pectoris; J43.9 Emphysema, unspecified; J98.4 Other disorders of lung; R91.8 Other nonspecific abnormal finding of lung field; F17.210 Nicotine dependence, cigarettes, uncomplicated
CPT/HCPCS: 71271

== ENCOUNTER → 2025-02-12 | Outpatient (CLI) | payer OTHER ==
--- NOTE | 2025-02-12 12:22 | CTL ---
EXAMINATION TYPE: CT Low Dose Lung DATE OF EXAM ORDERED: 02/12/2025 COMPARISON: CT Low Dose Lung 02/12/2024, 02/09/2023, 02/09/2022, 01/04/2021 CLINICAL INDICATION: Male, 69 years old with history of Z12.2 LUNG CA SCR F17.210 CURRENT SMOKER; [facility] , lung CA screening, Lung cancer screening, History of Smoking/tobacco use. TECHNIQUE: Low dose computed tomography scan was performed through the chest at 1 mm thick sections a nd reconstructed images in multiple planes at 1 mm and [address] DLP: 128.[address] CTDI: 3.6 mGy Automated exposure control for dose reduction was used. CT DIAGNOSTIC QUALITY: Satisfactory FINDINGS: Nodules: Stable 6.7 mm groundglass opacity within the medial aspect of the right upper lobe (series 6, image 9 ). Stable tiny 3 mm subpleural pulmonary nodule peripherally in the right upper lobe (series 4, image 99 ). No new or enlarging pulmonary nodules. LUNGS: COPD: Severity: Mild Fibrosis: Severity: None Lymph nodes: None Other findings: Linear scarring within the lingula and right middle lobe. Additional within the media l right lower lobe. RIGHT PLEURAL SPACE: Effusion: None Calcification: None Thickening: None Pneumothorax: None LEFT PLEURAL SPACE: Effusion: None Calcification: None Thickening: None Pneumothorax: None HEART: Heart Size: Normal, mild aortic valvular calcifications. Dense mitral annulus calcifications. Coronary Calcification: Moderate Pericardial Effusion: None OTHER FINDINGS: Upper abdomen: None Bony thorax: Partial visualization of anterior cervical fusion hardware. Multilevel anterior osteophy tosis. Supraclavicular region: None Other: Ectatic ascending aorta 3.8 cm. Mild atherosclerotic arch calcifications. IMPRESSION: 1. Couple of stable pulmonary nodules. No new or enlarging pulmonary nodules. 2. Mild emphysematous changes with bibasilar linear scarring. CT LUNG RAD AND CT CHEST RECOMMENDATION: Lung-Rad 2 Benign Appearance or Behavior: Continue annual sc reening with LDCT in 12 months. S Modifier (other clinically significant findings): None [facility], , 02/12/2025 12:20 PM
== END | disposition home or self-care (01) ==
LOC: RADCTMAIN 10:32
PROVIDERS: ATTEND Internal Medicine Pulmonary Disease
DX: Z12.2 Encounter for screening for malignant neoplasm of respiratory organs (principal); F17.210 Nicotine dependence, cigarettes, uncomplicated; J43.9 Emphysema, unspecified; R91.8 Other nonspecific abnormal finding of lung field; J98.4 Other disorders of lung
CPT/HCPCS: 71271